=== PATIENT | male | born 1990 | race African-American/Black ===

== ENCOUNTER 2018-12-08 08:15 | Inpatient (IN) | payer OTHER ==
[2018-12-08 10:45] VITALS: BMI 33.5
--- NOTE | 2018-12-08 11:44 | HP ---
CIWA Score Nausea/Vomitin Muscle Tremors: 3 Anxiety: 2 Agitation: 2 Paroxysmal Sweats: 1-Minimal Palms Moist Orientation: 0-Oriented Tacttile Disturbances: 0-None Auditory Disturbances: 0-None Visual Disturbances: 0-None Headache: 2-Mild CIWA-Ar Total Score: 12 - Admission Criteria OASAS Guidelines: Admission for Medically Managed Detox: Requires at least one of the followin. CIWA greater than 12 2. Seizures within the past 24 hours 3. Delirium tremens within the past 24 hours 4. Hallucinations within the past 24 hours 5. Acute intervention needed for co occurring medical disorder 6. Acute intervention needed for co occurring psychiatric disorder 7. Severe withdrawal that cannot be handled at a lower level of care (continued vomiting, continued diarrhea, abnormal vital signs) requiring intravenous medication and/or fluids 8. Admission ROS [facility] Chief Complaint: alcohol detox Allergies/Adverse Reactions: Allergies Allergy/AdvReac Type Severity Reaction Status Date / Time No Known Allergies Allergy Verified 12/08/18 10:38 History of Present Illness: 28 yo with schizophrenia and depression, not taking meds for about 4 months. Used to go to [facility]. Has no regular MH f/u. Says he has been drinking alcohol - 3 1/2 pints of Parvez plus 2 beers every day. States feeling sick for the last 2 months. Not eating much- says his stomach hurts from eating and drinking. Says he smokes or drinks all day. Does not do anything else. Has no PCP. Says he was picked up this morning. Says his last drink was yesterday. No seizures, h/o blackouts. THC- uses about 1/4 bag daily DUr- no meds - Ebola screening Have you traveled outside of the country in the last 21 days: No (N) Have you had contact with anyone from an Ebola affected area: No Do you have a fever: No - Review of Systems Constitutional: No Symptoms Reported EENT: reports: No Symptoms Reported Respiratory: reports: No Symptoms reported Cardiac: reports: No Symptoms Reported GI: reports: Abdominal Distended, Nausea, Other (watery stools for the last 2 months- says he also has abd pain- thinks it is due to alcohol) : reports: No Symptoms Reported Musculoskeletal: reports: No Symptoms Reported Integumentary: reports: No Symptoms Reported Neuro: reports: No Symptoms reported Endocrine: reports: No Symptoms Reported Patient History - Patient Medical History Hx Anemia: No Hx Chronic Obstructive Pulmonary Disease (COPD): No Hx Cancer: No Hx Cardiac Disorders: No Hx Congestive Heart Failure: No Hx Hypertension: No Hx Hypercholesterolemia: No Hx Pacemaker: No HX Cerebrovascular Accident: No Hx Seizures: No Hx Dementia: No Hx Diabetes: No Hx Gastrointestinal Disorders: No Hx Liver Disease: No Hx Genitourinary Disorders: No Hx Sexually Transmitted Disorders: No Hx Renal Disease (ESRD): No Hx Thyroid Disease: No Hx Human Immunodeficiency Virus (HIV): No Hx Hepatitis C: No Hx Depression: Yes Hx Suicide Attempt: No Hx Bipolar Disorder: No Hx Schizophrenia: Yes - Patient Surgical History Past Surgical History: No Hx Neurologic Surgery: No Hx Cataract Extraction: No Hx Cardiac Surgery: No Hx Lung Surgery: No Hx Breast Surgery: No Hx Breast Biopsy: No Hx Abdominal Surgery: No Hx Appendectomy: No Hx Cholecystectomy: No Hx Genitourinary Surgery: No Hx Section: No Hx Orthopedic Surgery: No Anesthesia Reaction: (N/A) - PPD History Date: 10/28/15 - Smoking Cessation Smoking history: Current every day smoker Have you smoked in the past 12 months: Yes Aproximately how many cigarettes per day: 10 Hx Chewing Tobacco Use: No Initiated information on smoking cessation: Yes 'Breaking Loose' booklet given: 12/08/18 - Substances abused Alcohol Substance route: Oral Frequency: Daily Amount used: 2-3 pints Age of first use: 17 Date of last use: 12/08/18 Marijuana/Hashish Substance route: Smoking Frequency: Daily Amount used: 7 grams Age of first use: 17 Date of last use: 12/08/18 Family Disease History - Family Disease History Family Disease History: Diabetes: Mother, Brother, Other: Father (NEVER MEET) Admission Physical Exam BHS - Vital Signs Vital Signs: Vital Signs - 24 hr 12/08/18 10:25 Temperature 98.6 F Pulse Rate 59 L Respiratory 18 Rate Blood Pressure 133/85 - Physical General Appearance: Yes: Disheveled, Mild Distress HEENTM: Yes: Within Normal Limits, EOMI, Hearing grossly Normal Respiratory: Yes: Within Normal Limits, Chest Non-Tender, Lungs Clear Neck: Yes: Within Normal Limits Cardiology: Yes: Within Normal Limits, Regular Rhythm Abdominal: Yes: Within Normal Limits, Other (mildly tender mid epigastrium, no rebound, no HSM) Back: Yes: Within Normal Limits Musculoskeletal: Yes: Within Normal Limits Extremities: Yes: Within Normal Limits, Normal Inspection Neurological: Yes: Within Normal Limits, business consultant II-XII NML intact, Fully Oriented Integumentary: Yes: Within Normal Limits Lymphatic: Yes: Within Normal Limits - Diagnostic (1) Alcohol dependence with withdrawal Current Visit: No Status: Acute Qualifiers: Complication of substance-induced condition: uncomplicated Qualified Code(s ): F10.230 - Alcohol dependence with withdrawal, uncomplicated (2) Cannabis dependence Current Visit: No Status: Acute (3) Schizophrenia Current Visit: No Status: Chronic Qualifiers: Schizophrenia type: paranoid schizophrenia Qualified Code(s): F20.0 - Paranoid schizophrenia Comment: ANGELA FLANNERY DEPAKOTE Breathalyzer - Breathalyzer Breathalyzer: 0 Urine Drug Screen - Test Device Lot number: [id number] Expiration date: 08/30/20 - Control Is test valid?: Yes - Results Drug screen NEGATIVE: No Urine drug screen results: THC-Marijuana Inpatient Rehab Admission - Rehab Decision to Admit Inpatient rehab admission?: No
[2018-12-08] MEDS ORDERED: MAGNESIUM CITRATE 300 ML BOTTLE PO PRN (11:56)
[2018-12-08] MEDS ORDERED: MENTHOL/PHENOL 1 EACH UD MM PRN (11:56)
[2018-12-08] MEDS ORDERED: chlordiazePOXIDE HCL 25 MG CAPSULE PO ONE (11:56)
[2018-12-08] MEDS ORDERED: NICOTINE POLACRILEX 2 MG GUM BUC PRN (11:56)
[2018-12-08] MEDS ORDERED: ACETAMINOPHEN 325 MG TABLET (FP) PO PRN ×2 (11:56)
[2018-12-08] MEDS ORDERED: MAGNESIUM HYDROX 2400MG/30ML ORAL SUSPENSION 30 ML CUP PO PRN (11:56)
[2018-12-08] MEDS ORDERED: ONDANSETRON *ODT* 4 MG TABLET SL PRN (11:56)
[2018-12-08] MEDS ORDERED: chlordiazePOXIDE HCL 10 MG CAPSULE PO PRN (11:56)
[2018-12-08] MEDS ORDERED: hydrOXYzine PAMOATE 25 MG CAPSULE (FP) PO PRN (11:56)
[2018-12-08] MEDS ORDERED: MAG HYDROX/AL HYDROX/SIMETH 30 ML UNIT-DOSE CUP PO PRN (11:56)
[2018-12-08] MEDS ORDERED: IBUPROFEN 400 MG TABLET (FP) PO PRN (11:56)
[2018-12-08] MEDS ORDERED: BISMUTH SUBSALICYLATE 524 MG/30 ML UD PO PRN (11:56)
[2018-12-08] MEDS: METHOCARBAMOL 500 MG TABLET PO PRN (14:02)
[2018-12-08] MEDS: THIAMINE HCL 100 MG TABLET (FP) PO SCH (23:02)
[2018-12-08] MEDS: MELATONIN 5 MG TABLETS PO PRN (23:02)
[2018-12-08] MEDS: chlordiazePOXIDE HCL 25 MG CAPSULE PO SCH (23:02)
[2018-12-09] MEDS: chlordiazePOXIDE HCL 25 MG CAPSULE PO SCH ×3 (05:48→22:18)
[2018-12-09] MEDS: PRENATAL VITAMINS W/ FOLIC ACID TABLET (FP) PO SCH (10:29)
--- NOTE | 2018-12-09 10:56 | PN ---
S CIWA - CIWA Score Nausea/Vomitin-Mild Nausea/No Vomiting Muscle Tremors: 2 Anxiety: 4-Mod. Anxious/Guarded Agitation: 3 Paroxysmal Sweats: 2 Orientation: 0-Oriented Tacttile Disturbances: 1-Very Mild Itch/Numbness Auditory Disturbances: 0-None Visual Disturbances: 0-None Headache: 1-Very Mild CIWA-Ar Total Score: 14 BHS Progress Note (SOAP) Subjective: 28 years old male 1st patient [facility] admission since 2017 was admitted on 12/08/18 for alcohol withdrawal sx management doing well with librium detox able to rest on bed comfortably c/o long history of GERD treated with over the counter antiacid medication begin zantac 150 mg po bid encourage maalox Objective: 12/09/18 10:59 Vital Signs Temperature 97.5 F L 12/09/18 09:35 Pulse Rate 67 12/09/18 09:35 Respiratory Rate 20 12/09/18 09:35 Blood Pressure 100/60 12/09/18 09:35 O2 Sat by Pulse Oximetry (%) lab pending Assessment: 12/09/18 10:59 alcohol withdrawal sx Plan: continue librium detox regimen
[2018-12-09] MEDS ORDERED: ONDANSETRON *ODT* 4 MG TABLET SL ONE (11:40)
[2018-12-09 12:42] LABS: HEMATOCRIT 41.2 % (35.4-49); HEMOGLOBIN 13.5 GM/dL (11.7-16.9); MCH 27.2 pg (25.7-33.7); MCHC 32.8 g/dl (32.0-35.9); MEAN CELL VOLUME 82.9 fl (80-96); MEAN PLT VOLUME 9.4 fl (7.5-11.1); PLATELET COUNT 132 K/MM3 (134-434); RBC 4.96 M/mm3 (4.00-5.60); RDW 14.8 % (11.9-15.9); WHITE BLOOD COUNT 3.9 K/mm3 (4.0-10.0)
[2018-12-09 12:50] LABS: ALBUMIN 3.6 g/dl (3.4-5.0); BLOOD UREA NITROGEN 10.8 mg/dL (7-18); CALCIUM 9.2 mg/dL (8.5-10.1); CREATININE 1.1 mg/dL (0.55-1.3); POTASSIUM 4.1 mmol/L (3.5-5.1); TOT PROT 6.8 g/dl (6.4-8.2)
[2018-12-09] MEDS: RANITIDINE HCL 150 MG TABLET (FP) PO SCH ×2 (13:00→22:18)
--- NOTE | 2018-12-09 16:02 | CONSULT ---
[facility] Psychiatric Consult - Data Date of interview: 12/09/18 Admission source: [facility] Identifying data: Readmission to [facility] for this 28 y/o AA male self- referred for detoxification (alcohol, cannabis). Examined at [address] [place] [address]. Patient is single, no dependents, homeless, unemployed and supported on welfare. Substance Abuse History: Confirmed by patient. Details in current [facility] report as follows : Smoking history: Current every day smoker. Have you smoked in the past 12 months: Yes. Aproximately how many cigarettes per day: 10. Hx Chewing Tobacco Use: No. Initiated information on smoking cessation: Yes. 'Breaking Loose' booklet given: 12/08/18. - Substances abused. Alcohol. Substance route: Oral. Frequency: Daily. Amount used: 2-3 pints. Age of first use: 17. Date of last use: 12/08/18. Marijuana/Hashish. Substance route: Smoking. Frequency: Daily. Amount used: 7 grams. Age of first use: 17. Date of last use: 12/08/18 Medical History: Patient endorses good general health. Psychiatric History: Patient endorses a history of 2-3 psychiatric hospitalizations (all are at [facility]). First hospitalization occurred in 2015 but the patient indicates that his symptoms ( auditory hallucinations, paranoia) started much more early in his life (age 17) . Mr Elder has received the diagnosis of Schizophrenia vs Schizoaffective Disorder. Dropped out of psychiatric care about 12 months ago (stopped taking his medications : depakote + haldol + cogentin). No show at the [facility] OPD clinic for months. Patient denies history of suicide attempts. Physical/Sexual Abuse/Trauma History: Patient denies. Additional Comment: Urine drug screen results: THC-Marijuana. Noted. Mental Status Exam - Mental Status Exam Alert and Oriented to: Time, Place, Person Cognitive Function: Good Patient Appearance: Well Groomed Mood: Nervous, Withdrawn Affect: Mood Congruent, Blunted Patient Behavior: Fatigued, Appropriate, Cooperative Speech Pattern: Clear, Appropriate Voice Loudness: Normal Thought Process: Goal Oriented Hallucinations: Denies Suicidal Ideation: Denies Homicidal Ideation: Denies Insight/Judgement: Poor Sleep: Well Appetite: Good Muscle strength/Tone: Normal Gait/Station: Normal Psychiatric Findings - Problem List ([place] 1, 2,3) (1) Schizophrenia Current Visit: Yes Status: Chronic Qualifiers: Schizophrenia type: paranoid schizophrenia Qualified Code(s): F20.0 - Paranoid schizophrenia Comment: HALDOL, COGENTIN, DEPAKOTE (2) Alcohol dependence with withdrawal Current Visit: Yes Status: Acute Qualifiers: Complication of substance-induced condition: uncomplicated Qualified Code(s ): F10.230 - Alcohol dependence with withdrawal, uncomplicated (3) Cannabis dependence Current Visit: Yes Status: Chronic (4) Nicotine dependence Current Visit: Yes Status: Chronic (5) Non-compliance Current Visit: Yes Status: Chronic - Initial Treatment Plan Initial Treatment Plan: Psychoeducation. Sleep hygiene. Support. Detoxification. Relapse prevention (MAT) : discussed in this session. Motivational counseling. AA meetings. Groups. Mr Elder has expressed the wish to resume his former medications. Labs reviewed : noted platelets = 132. Will follow. Resumed : haldol 5 mg po hs + cogentin 1 mg po hs + depakote 250 mg po bid. Side effects/benefits of each drug are discussed with the patient. He is made aware of the risk for dystonia, dyskinesias, neuroleptic malignant syndrome , akathisia, sexual dysfunction, Rouse-Gallito Syndrome/toxic epidermal necrolysis, liver dysfunction, blood dyscrasias, weight gain, alopecia and cholinergic issues (dry mouth, urinary hesitancy, constipation, blurred vision) . Patient agrees to resume these medications. Gave verbal consent to MD. Puentes.
[2018-12-09] MEDS: MELATONIN 5 MG TABLETS PO PRN (22:18)
[2018-12-09] MEDS: THIAMINE HCL 100 MG TABLET (FP) PO SCH (22:18)
[2018-12-09] MEDS: DIVALPROEX SODIUM 250 MG TABLET E.C. PO SCH (22:18)
[2018-12-09] MEDS: BENZTROPINE MESYLATE 1 MG TABLET (FP) PO SCH (22:18)
[2018-12-09] MEDS: HALOPERIDOL 5 MG TABLET (FP) PO SCH (22:18)
[2018-12-10] MEDS: chlordiazePOXIDE 5 MG CAPSULE PO SCH ×3 (06:29→21:30)
[2018-12-10] MEDS: RANITIDINE HCL 150 MG TABLET (FP) PO SCH ×2 (10:33→22:38)
[2018-12-10] MEDS: PRENATAL VITAMINS W/ FOLIC ACID TABLET (FP) PO SCH (10:33)
[2018-12-10] MEDS: DIVALPROEX SODIUM 250 MG TABLET E.C. PO SCH ×2 (10:33→22:38)
--- NOTE | 2018-12-10 10:42 | PN ---
[facility] CIWA - CIWA Score Nausea/Vomitin-Mild Nausea/No Vomiting Muscle Tremors: 3 Anxiety: 4-Mod. Anxious/Guarded Agitation: 3 Paroxysmal Sweats: 2 Orientation: 0-Oriented Tacttile Disturbances: 0-None Auditory Disturbances: 0-None Visual Disturbances: 0-None Headache: 0-None Present CIWA-Ar Total Score: 13 S Progress Note (SOAP) Subjective: 28 years old male 1st patient [facility] admission since 2015 was admitted on 12/08/18 for alcohol withdrawal sx management doing well with librium detox regimen seen by psychiatrist treated with cogentin haldol and depakote patient tolerate well patient reported that ensure comfort him and have calming effect ensure 120 ml po od while in detox Objective: 12/10/18 10:46 Vital Signs Temperature 98.5 F 12/10/18 09:57 Pulse Rate 54 L 12/10/18 09:57 Respiratory Rate 18 12/10/18 09:57 Blood Pressure 106/60 12/10/18 09:57 O2 Sat by Pulse Oximetry (%) Laboratory Last Values WBC 3.9 K/mm3 (4.0-10.0) L 12/09/18 09:00 RBC 4.96 M/mm3 (4.00-5.60) 12/09/18 09:00 Hgb 13.5 GM/dL (11.7-16.9) 12/09/18 09:00 Hct 41.2 % (35.4-49) 12/09/18 09:00 MCV 82.9 fl (80-96) 12/09/18 09:00 MCH 27.2 pg (25.7-33.7) 12/09/18 09:00 MCHC 32.8 g/dl (32.0-35.9) 12/09/18 09:00 RDW 14.8 % (11.9-15.9) 12/09/18 09:00 Plt Count 132 K/MM3 (134-434) L D 12/09/18 09:00 MPV 9.4 fl (7.5-11.1) D 12/09/18 09:00 Sodium 140 mmol/L (136-145) 12/09/18 09:00 Potassium 4.1 mmol/L (3.5-5.1) 12/09/18 09:00 Chloride 107 mmol/L (98-107) 12/09/18 09:00 Carbon Dioxide 26 mmol/L (21-32) 12/09/18 09:00 Anion Gap 7 MMOL/L (8-16) L 12/09/18 09:00 BUN 10.8 mg/dL (7-18) 12/09/18 09:00 Creatinine 1.1 mg/dL (0.55-1.3) 12/09/18 09:00 Est GFR (CKD-EPI)AfAm 104.59 12/09/18 09:00 Est GFR (CKD-EPI)NonAf 90.24 12/09/18 09:00 Random Glucose 97 mg/dL (74-106) 12/09/18 09:00 Calcium 9.2 mg/dL (8.5-10.1) 12/09/18 09:00 Total Bilirubin 1.0 mg/dL (0.2-1) 12/09/18 09:00 AST 54 U/L (15-37) H 12/09/18 09:00 ALT 55 U/L (13-61) 12/09/18 09:00 Alkaline Phosphatase 94 U/L (45-117) 12/09/18 09:00 Total Protein 6.8 g/dl (6.4-8.2) 12/09/18 09:00 Albumin 3.6 g/dl (3.4-5.0) 12/09/18 09:00 RPR Titer Nonreactive (NONREACTIVE) 12/09/18 09:00 lab noted Assessment: 12/10/18 10:46 alcohol withdrawal sx Plan: continue librium detox regimen
[2018-12-10] MEDS: HALOPERIDOL 5 MG TABLET (FP) PO SCH (22:38)
[2018-12-10] MEDS: THIAMINE HCL 100 MG TABLET (FP) PO SCH (22:38)
[2018-12-10] MEDS: BENZTROPINE MESYLATE 1 MG TABLET (FP) PO SCH (22:38)
[2018-12-10] MEDS: MELATONIN 5 MG TABLETS PO PRN (22:40)
[2018-12-11] MEDS ORDERED: chlordiazePOXIDE HCL 10 MG CAPSULE PO PRN
[2018-12-11] MEDS: chlordiazePOXIDE HCL 10 MG CAPSULE PO SCH ×3 (07:19→22:30)
[2018-12-11] MEDS: DIVALPROEX SODIUM 250 MG TABLET E.C. PO SCH ×2 (10:34→22:30)
[2018-12-11] MEDS: PRENATAL VITAMINS W/ FOLIC ACID TABLET (FP) PO SCH (10:34)
[2018-12-11] MEDS: RANITIDINE HCL 150 MG TABLET (FP) PO SCH ×2 (10:34→22:30)
--- NOTE | 2018-12-11 11:19 | PN ---
[facility] CIWA - CIWA Score Nausea/Vomitin-No Nausea/No Vomiting Muscle Tremors: 2 Anxiety: 3 Agitation: 2 Paroxysmal Sweats: 1-Minimal Palms Moist Orientation: 0-Oriented Tacttile Disturbances: 0-None Auditory Disturbances: 0-None Visual Disturbances: 0-None Headache: 0-None Present CIWA-Ar Total Score: 8 S Progress Note (SOAP) Subjective: doing well with librium detox regimen seen by psychiatrist treated with haldol cogentin and depakote patient tolerate well discuss aftercare with staff [facility] Objective: 12/11/18 11:19 Vital Signs Temperature 96.6 F L 12/11/18 09:21 Pulse Rate 67 12/11/18 09:21 Respiratory Rate 18 12/11/18 09:21 Blood Pressure 121/66 12/11/18 09:21 O2 Sat by Pulse Oximetry (%) Laboratory Laboratory Last Values WBC 3.9 K/mm3 (4.0-10.0) L 12/09/18 09:00 RBC 4.96 M/mm3 (4.00-5.60) 12/09/18 09:00 Hgb 13.5 GM/dL (11.7-16.9) 12/09/18 09:00 Hct 41.2 % (35.4-49) 12/09/18 09:00 MCV 82.9 fl (80-96) 12/09/18 09:00 MCH 27.2 pg (25.7-33.7) 12/09/18 09:00 MCHC 32.8 g/dl (32.0-35.9) 12/09/18 09:00 RDW 14.8 % (11.9-15.9) 12/09/18 09:00 Plt Count 132 K/MM3 (134-434) L D 12/09/18 09:00 MPV 9.4 fl (7.5-11.1) D 12/09/18 09:00 Sodium 140 mmol/L (136-145) 12/09/18 09:00 Potassium 4.1 mmol/L (3.5-5.1) 12/09/18 09:00 Chloride 107 mmol/L (98-107) 12/09/18 09:00 Carbon Dioxide 26 mmol/L (21-32) 12/09/18 09:00 Anion Gap 7 MMOL/L (8-16) L 12/09/18 09:00 BUN 10.8 mg/dL (7-18) 12/09/18 09:00 Creatinine 1.1 mg/dL (0.55-1.3) 12/09/18 09:00 Est GFR (CKD-EPI)AfAm 104.59 12/09/18 09:00 Est GFR (CKD-EPI)NonAf 90.24 12/09/18 09:00 Random Glucose 97 mg/dL (74-106) 12/09/18 09:00 Calcium 9.2 mg/dL (8.5-10.1) 12/09/18 09:00 Total Bilirubin 1.0 mg/dL (0.2-1) 12/09/18 09:00 AST 54 U/L (15-37) H 12/09/18 09:00 ALT 55 U/L (13-61) 12/09/18 09:00 Alkaline Phosphatase 94 U/L (45-117) 12/09/18 09:00 Total Protein 6.8 g/dl (6.4-8.2) 12/09/18 09:00 Albumin 3.6 g/dl (3.4-5.0) 12/09/18 09:00 RPR Titer Nonreactive (NONREACTIVE) 12/09/18 09:00 TB (QFT) Incubation (.) 12/09/18 09:00 TB Test (QFT) Nil 0.03 IU/mL (.) 12/09/18 09:00 TB Test (QFT) Mitogen >10.00 IU/mL (.) 12/09/18 09:00 TB Test (QFT) Antigen 0.03 IU/mL (.) 12/09/18 09:00 TB Test (QFT) Negative (Negative) 12/09/18 09:00 TB Positive Criteria (.) 12/09/18 09:00 lab noted Assessment: 12/11/18 11:20 alcohol withdrawal sx Plan: continue libirum detox regimen
[2018-12-11] MEDS: THIAMINE HCL 100 MG TABLET (FP) PO SCH (22:30)
[2018-12-11] MEDS: HALOPERIDOL 5 MG TABLET (FP) PO SCH (22:30)
[2018-12-11] MEDS: BENZTROPINE MESYLATE 1 MG TABLET (FP) PO SCH (22:30)
[2018-12-11] MEDS: MELATONIN 5 MG TABLETS PO PRN (22:30)
[2018-12-11] MEDS: METHOCARBAMOL 500 MG TABLET PO PRN (22:31)
[2018-12-12] MEDS ORDERED: chlordiazePOXIDE HCL 10 MG CAPSULE PO ONE (05:00)
[2018-12-12] MEDS: RANITIDINE HCL 150 MG TABLET (FP) PO SCH (10:23)
[2018-12-12] MEDS: DIVALPROEX SODIUM 250 MG TABLET E.C. PO SCH (10:23)
[2018-12-12] MEDS: PRENATAL VITAMINS W/ FOLIC ACID TABLET (FP) PO SCH (10:24)
--- NOTE | 2018-12-12 10:33 | DS ---
[facility] Detox Discharge Summary Admission Date: 12/08/18 Discharge Date: 12/12/18 - History Present History: Alcohol Dependence Additional Comments: 28 years old male admitted on 12/08/18 for alcohol withdrawal sx management did well with librium detox regimen no complication through out the detox stay seen by psychiatrist treated with depakote 250 mg po bid haldol 5 mg po hs and cogentin 1 mg po hs patient tolerated well alert oriented x 3 cardiac S1S2 regular rate rhythm no shortness of breath no wheezing - Physical Exam Results Vital Signs: Vital Signs Temperature 97.8 F 12/12/18 09:17 Pulse Rate 51 L 12/12/18 09:17 Respiratory Rate 16 12/12/18 09:17 Blood Pressure 116/66 12/12/18 09:17 O2 Sat by Pulse Oximetry (%) Pertinent Admission Physical Exam Findings: alcohol withdrawal sx Laboratory Last Values WBC 3.9 K/mm3 (4.0-10.0) L 12/09/18 09:00 RBC 4.96 M/mm3 (4.00-5.60) 12/09/18 09:00 Hgb 13.5 GM/dL (11.7-16.9) 12/09/18 09:00 Hct 41.2 % (35.4-49) 12/09/18 09:00 MCV 82.9 fl (80-96) 12/09/18 09:00 MCH 27.2 pg (25.7-33.7) 12/09/18 09:00 MCHC 32.8 g/dl (32.0-35.9) 12/09/18 09:00 RDW 14.8 % (11.9-15.9) 12/09/18 09:00 Plt Count 132 K/MM3 (134-434) L D 12/09/18 09:00 MPV 9.4 fl (7.5-11.1) D 12/09/18 09:00 Sodium 140 mmol/L (136-145) 12/09/18 09:00 Potassium 4.1 mmol/L (3.5-5.1) 12/09/18 09:00 Chloride 107 mmol/L (98-107) 12/09/18 09:00 Carbon Dioxide 26 mmol/L (21-32) 12/09/18 09:00 Anion Gap 7 MMOL/L (8-16) L 12/09/18 09:00 BUN 10.8 mg/dL (7-18) 12/09/18 09:00 Creatinine 1.1 mg/dL (0.55-1.3) 12/09/18 09:00 Est GFR (CKD-EPI)AfAm 104.59 12/09/18 09:00 Est GFR (CKD-EPI)NonAf 90.24 12/09/18 09:00 Random Glucose 97 mg/dL (74-106) 12/09/18 09:00 Calcium 9.2 mg/dL (8.5-10.1) 12/09/18 09:00 Total Bilirubin 1.0 mg/dL (0.2-1) 12/09/18 09:00 AST 54 U/L (15-37) H 12/09/18 09:00 ALT 55 U/L (13-61) 12/09/18 09:00 Alkaline Phosphatase 94 U/L (45-117) 12/09/18 09:00 Total Protein 6.8 g/dl (6.4-8.2) 12/09/18 09:00 Albumin 3.6 g/dl (3.4-5.0) 12/09/18 09:00 RPR Titer Nonreactive (NONREACTIVE) 12/09/18 09:00 TB (QFT) Incubation (.) 12/09/18 09:00 TB Test (QFT) Nil 0.03 IU/mL (.) 12/09/18 09:00 TB Test (QFT) Mitogen >10.00 IU/mL (.) 12/09/18 09:00 TB Test (QFT) Antigen 0.03 IU/mL (.) 12/09/18 09:00 TB Test (QFT) Negative (Negative) 12/09/18 09:00 TB Positive Criteria (.) 12/09/18 09:00 lab noted - Treatment Hospital Course: Detox Protocol Followed, Detoxed Safely, Responded well, Discharged Condition Good, Rehab Referral Accepted Patient has Accepted [facility] Referral [facility] - Medication Discharge Medications: Ambulatory Orders Benztropine Mesylate 1 mg PO BID 10/26/15 Divalproex [Depakote -] 500 mg PO BID 10/26/15 Haloperidol [Haldol -] 5 mg PO BID 10/26/15 Benztropine Mesylate [Cogentin -] 1 mg PO BID #60 tablet 11/23/15 Divalproex [Depakote -] 500 mg PO BID #60 tablet.ec 11/23/15 Haloperidol [Haldol -] 10 mg PO BID #60 tablet 11/23/15 - Diagnosis (1) Alcohol dependence with withdrawal Current Visit: Yes Status: Acute Qualifiers: Complication of substance-induced condition: uncomplicated Qualified Code(s ): F10.230 - Alcohol dependence with withdrawal, uncomplicated (2) Nicotine dependence Current Visit: Yes Status: Acute Qualifiers: Nicotine product type: cigarettes Substance use status: in withdrawal Qualified Code(s): F17.213 - Nicotine dependence, cigarettes, with withdrawal (3) Schizophrenia Current Visit: Yes Status: Suspected Qualifiers: Schizophrenia type: paranoid schizophrenia Qualified Code(s): F20.0 - Paranoid schizophrenia - AMA Did Patient Leave Against Medical Advice: No CIWA Score - CIWA Score Nausea/Vomitin-No Nausea/No Vomiting Muscle Tremors: 1-None Visible, but [place] Anxiety: 2 Agitation: 1-Slight > Activity Paroxysmal Sweats: No Perspiration Orientation: 0-Oriented Tacttile Disturbances: 0-None Auditory Disturbances: 0-None Visual Disturbances: 0-None Headache: 0-None Present CIWA-Ar Total Score: 4
[2018-12-12 13:22] VITALS: BP 107/71; PULSE 64; TEMP 99.9
== END 2018-12-12 14:30 | disposition other institution (70) | DRG 775 ==
LOC: YASAS 08:15 → Y3N 12:33
PROVIDERS: ADMIT Surgery; ATTEND Surgery
PROC: HZ2ZZZZ Detoxification Services for Substance Abuse Treatment (ICD-10-PCS; principal; 2018-12-08)
DX: F10.230 Alcohol dependence with withdrawal, uncomplicated (principal); F12.20 Cannabis dependence, uncomplicated; F17.213 Nicotine dependence, cigarettes, with withdrawal; F20.0 Paranoid schizophrenia
CPT/HCPCS: 36415; 80053; 85027; 86480; 86593; Q0162

== ENCOUNTER 2018-12-12 14:39 | Inpatient (IN) | payer OTHER ==
--- NOTE | 2018-12-12 10:45 | HP ---
[facility] Rehab Assess/Revision - Admission History Admitted to Rehab from: [facility] Date of Admission to Rehab: 12/12/18 - Findings Detox History & Physical reviewed: Yes Concur with findings: Yes Comments/Additional Findings: transferred from detox to rehab admission as per protocol Inpatient Rehab Admission - Rehab Decision to Admit Inpatient rehab admission?: Yes - Initial Determination Are CD services needed?: Yes Free of communicable disease: Yes Not in need of hospitalization: Yes - Rehab Admission Criteria Previous failed treatment: Yes Poor recovery environment: Yes Comorbidities: Yes Lacks judgement: Yes Patient is meeting Inpatient Rehab admission criteria:: Yes
[~2018-12-12 14:39] MED LIST: LOPERAMIDE HCL 2 MG CAPSULE PO PRN; MAG HYDROX/AL HYDROX/SIMETH 30 ML UNIT-DOSE CUP PO PRN; MAGNESIUM CITRATE 300 ML BOTTLE PO PRN; MAGNESIUM HYDROX 2400MG/30ML ORAL SUSPENSION 30 ML CUP PO PRN; MENTHOL/PHENOL 1 EACH UD MM PRN; NICOTINE 7 MG/24 HOURS TOPICAL PATCH TD PRN; P-EPHED 60MG/TRIPROLIDI 2.5MG TABLET PO PRN; guaiFENesin 200 MG/10 ML 10 ML UNIT-DOSE CUPS PO PRN
[2018-12-12] MEDS: DIVALPROEX SODIUM 250 MG TABLET E.C. PO SCH (21:14)
[2018-12-12] MEDS: BENZTROPINE MESYLATE 1 MG TABLET (FP) PO SCH (21:14)
[2018-12-12] MEDS: HALOPERIDOL 5 MG TABLET (FP) PO SCH (21:14)
[2018-12-12] MEDS: THIAMINE HCL 100 MG TABLET (FP) PO SCH (21:15)
[2018-12-12] MEDS: MELATONIN 5 MG TABLETS PO PRN (21:15)
[2018-12-13] MEDS: DIVALPROEX SODIUM 250 MG TABLET E.C. PO SCH ×2 (09:54→21:11)
[2018-12-13] MEDS: PRENATAL VITAMINS W/ FOLIC ACID TABLET (FP) PO SCH (09:54)
[2018-12-13] MEDS ORDERED: PNEUMOC 13-VAL CONJ-DIP CRM/PF 0.5 ML DISP.SYRIN IM ONE (12:00)
[2018-12-13] MEDS ORDERED: PNEUMOCOCCAL 23 VACCINE 0.5 ML VIAL IM ONE (12:00)
--- NOTE | 2018-12-13 19:08 | CONSULT ---
[facility] Psychiatric Consult - Data Date of interview: 12/13/18 Admission source: [facility] Identifying data: Case of a 28 y/o AA male who completed detoxification (alcohol , cannabis) at [address] [place] [address]. Now admitted to [address] for rehabilitation. Patient is single, no dependents, homeless, unemployed and supported on welfare. Substance Abuse History: Rediscussed with patient. No changes since intervention at [address] [place] [address]. Details in current [facility] report as follows : Smoking history: Current every day smoker. Have you smoked in the past 12 months: Yes. Aproximately how many cigarettes per day: 10. Hx Chewing Tobacco Use: No. Initiated information on smoking cessation: Yes. 'Breaking Loose' booklet given : 12/08/18. - Substances abused. Alcohol. Substance route: Oral. Frequency: Daily. Amount used: 2-3 pints. Age of first use: 17. Date of last use: 12/08/18. Marijuana/Hashish. Substance route: Smoking. Frequency: Daily. Amount used: 7 grams. Age of first use: 17. Date of last use: 12/08/18 Medical History: Patient endorses good general health. Psychiatric History: Same history since encounter at [address] [place] [address]. Patient endorses a history of 2-3 psychiatric hospitalizations (all are at [facility]). First hospitalization occurred in 2015 but the patient indicates that his symptoms (auditory hallucinations, paranoia) started much more early in his life (age 17). Mr Elder has received the diagnosis of Schizophrenia vs Schizoaffective Disorder. Dropped out of psychiatric care about 12 months ago ( stopped taking his medications : depakote + haldol + cogentin). No show at the [facility] OPD clinic for months. Patient denies history of suicide attempts. Physical/Sexual Abuse/Trauma History: No reported history of abuse. Additional Comment: Urine drug screen results: THC-Marijuana. Noted. Mental Status Exam - Mental Status Exam Alert and Oriented to: Time, Place, Person Cognitive Function: Good Patient Appearance: Well Groomed Mood: Hopeful, Euthymic Affect: Appropriate, Normal Range Patient Behavior: Appropriate Speech Pattern: Clear Voice Loudness: Normal Thought Process: Intact, Goal Oriented Thought Disorder: Not Present Hallucinations: Denies Suicidal Ideation: Denies Homicidal Ideation: Denies Insight/Judgement: Fair Sleep: Well Appetite: Good Gait/Station: Normal Psychiatric Findings - Problem List ([place] 1, 2,3) (1) Schizophrenia Current Visit: Yes Status: Chronic Qualifiers: Schizophrenia type: paranoid schizophrenia Qualified Code(s): F20.0 - Paranoid schizophrenia Comment: ANGELA FLANNERY DEPAKOTE (2) Alcohol dependence Current Visit: Yes Status: Chronic (3) Cannabis dependence Current Visit: Yes Status: Chronic (4) Nicotine dependence Current Visit: Yes Status: Chronic Qualifiers: Nicotine product type: cigarettes Substance use status: in withdrawal Qualified Code(s): F17.213 - Nicotine dependence, cigarettes, with withdrawal - Initial Treatment Plan Initial Treatment Plan: Patient examined. Stable mental status. Psychoducation is ongoing. Harm reduction. Motivational counseling. angela Flannery depakote : continuity of care initiated at [address] [place] [address] (as per current orders). Informed consent revalidated with the patient. Observation.
[2018-12-13] MEDS: HALOPERIDOL 5 MG TABLET (FP) PO SCH (21:11)
[2018-12-13] MEDS: THIAMINE HCL 100 MG TABLET (FP) PO SCH (21:11)
[2018-12-13] MEDS: BENZTROPINE MESYLATE 1 MG TABLET (FP) PO SCH (21:11)
[2018-12-13] MEDS: MELATONIN 5 MG TABLETS PO PRN (21:12)
[2018-12-14] MEDS: PRENATAL VITAMINS W/ FOLIC ACID TABLET (FP) PO SCH (09:51)
[2018-12-14] MEDS: DIVALPROEX SODIUM 250 MG TABLET E.C. PO SCH ×2 (09:51→21:30)
[2018-12-14] MEDS: IBUPROFEN 400 MG TABLET (FP) PO PRN (21:30)
[2018-12-14] MEDS: HALOPERIDOL 5 MG TABLET (FP) PO SCH (21:30)
[2018-12-14] MEDS: MELATONIN 5 MG TABLETS PO PRN (21:30)
[2018-12-14] MEDS: BENZTROPINE MESYLATE 1 MG TABLET (FP) PO SCH (21:30)
[2018-12-14] MEDS: THIAMINE HCL 100 MG TABLET (FP) PO SCH (21:30)
[2018-12-15] MEDS: PRENATAL VITAMINS W/ FOLIC ACID TABLET (FP) PO SCH (09:56)
[2018-12-15] MEDS: DIVALPROEX SODIUM 250 MG TABLET E.C. PO SCH ×2 (09:56→21:19)
[2018-12-15] MEDS: NICOTINE POLACRILEX 2 MG GUM BUC PRN ×2 (17:30→21:19)
[2018-12-15] MEDS: BENZTROPINE MESYLATE 1 MG TABLET (FP) PO SCH (21:19)
[2018-12-15] MEDS: THIAMINE HCL 100 MG TABLET (FP) PO SCH (21:19)
[2018-12-15] MEDS: MELATONIN 5 MG TABLETS PO PRN (21:19)
[2018-12-15] MEDS: HALOPERIDOL 5 MG TABLET (FP) PO SCH (21:19)
[2018-12-16] MEDS: PRENATAL VITAMINS W/ FOLIC ACID TABLET (FP) PO SCH (10:09)
[2018-12-16] MEDS: DIVALPROEX SODIUM 250 MG TABLET E.C. PO SCH ×2 (10:09→21:14)
[2018-12-16] MEDS: HALOPERIDOL 5 MG TABLET (FP) PO SCH (21:14)
[2018-12-16] MEDS: THIAMINE HCL 100 MG TABLET (FP) PO SCH (21:14)
[2018-12-16] MEDS: BENZTROPINE MESYLATE 1 MG TABLET (FP) PO SCH (21:14)
[2018-12-16] MEDS: MELATONIN 5 MG TABLETS PO PRN (21:14)
[2018-12-17] MEDS: PRENATAL VITAMINS W/ FOLIC ACID TABLET (FP) PO SCH (10:07)
[2018-12-17] MEDS: DIVALPROEX SODIUM 250 MG TABLET E.C. PO SCH ×2 (10:07→21:27)
[2018-12-17] MEDS: HALOPERIDOL 5 MG TABLET (FP) PO SCH (21:27)
[2018-12-17] MEDS: MELATONIN 5 MG TABLETS PO PRN (21:27)
[2018-12-17] MEDS: THIAMINE HCL 100 MG TABLET (FP) PO SCH (21:27)
[2018-12-17] MEDS: BENZTROPINE MESYLATE 1 MG TABLET (FP) PO SCH (21:27)
[2018-12-17] MEDS: NICOTINE POLACRILEX 2 MG GUM BUC PRN (21:28)
[2018-12-18] MEDS: PRENATAL VITAMINS W/ FOLIC ACID TABLET (FP) PO SCH (10:27)
[2018-12-18] MEDS: DIVALPROEX SODIUM 250 MG TABLET E.C. PO SCH ×2 (10:27→21:22)
[2018-12-18] MEDS: NICOTINE POLACRILEX 2 MG GUM BUC PRN ×3 (15:02→21:23)
[2018-12-18] MEDS: BENZTROPINE MESYLATE 1 MG TABLET (FP) PO SCH (21:22)
[2018-12-18] MEDS: HALOPERIDOL 5 MG TABLET (FP) PO SCH (21:22)
[2018-12-18] MEDS: THIAMINE HCL 100 MG TABLET (FP) PO SCH (21:22)
[2018-12-19] MEDS: PRENATAL VITAMINS W/ FOLIC ACID TABLET (FP) PO SCH (10:24)
[2018-12-19] MEDS: DIVALPROEX SODIUM 250 MG TABLET E.C. PO SCH ×2 (10:24→21:23)
[2018-12-19] MEDS: NICOTINE POLACRILEX 2 MG GUM BUC PRN (14:09)
[2018-12-19] MEDS: IBUPROFEN 400 MG TABLET (FP) PO PRN (16:45)
[2018-12-19] MEDS: BENZTROPINE MESYLATE 1 MG TABLET (FP) PO SCH (21:23)
[2018-12-19] MEDS: HALOPERIDOL 5 MG TABLET (FP) PO SCH (21:23)
[2018-12-19] MEDS: THIAMINE HCL 100 MG TABLET (FP) PO SCH (21:23)
[2018-12-19] MEDS: MELATONIN 5 MG TABLETS PO PRN (21:24)
[2018-12-20] MEDS: PRENATAL VITAMINS W/ FOLIC ACID TABLET (FP) PO SCH (10:03)
[2018-12-20] MEDS: DIVALPROEX SODIUM 250 MG TABLET E.C. PO SCH ×2 (10:03→21:26)
[2018-12-20] MEDS: NICOTINE POLACRILEX 2 MG GUM BUC PRN ×3 (18:40→23:27)
[2018-12-20] MEDS: THIAMINE HCL 100 MG TABLET (FP) PO SCH (21:26)
[2018-12-20] MEDS: BENZTROPINE MESYLATE 1 MG TABLET (FP) PO SCH (21:26)
[2018-12-20] MEDS: HALOPERIDOL 5 MG TABLET (FP) PO SCH (21:26)
[2018-12-20] MEDS: MELATONIN 5 MG TABLETS PO PRN (21:26)
[2018-12-20] MEDS: ACETAMINOPHEN 325 MG TABLET (FP) PO PRN (21:27)
[2018-12-21] MEDS: PRENATAL VITAMINS W/ FOLIC ACID TABLET (FP) PO SCH (09:35)
[2018-12-21] MEDS: DIVALPROEX SODIUM 250 MG TABLET E.C. PO SCH ×2 (09:35→21:14)
[2018-12-21] MEDS: HALOPERIDOL 5 MG TABLET (FP) PO SCH (21:14)
[2018-12-21] MEDS: THIAMINE HCL 100 MG TABLET (FP) PO SCH (21:14)
[2018-12-21] MEDS: BENZTROPINE MESYLATE 1 MG TABLET (FP) PO SCH (21:14)
[2018-12-21] MEDS: MELATONIN 5 MG TABLETS PO PRN (21:14)
[2018-12-21] MEDS: ACETAMINOPHEN 325 MG TABLET (FP) PO PRN (21:55)
[2018-12-22] MEDS: PRENATAL VITAMINS W/ FOLIC ACID TABLET (FP) PO SCH (09:57)
[2018-12-22] MEDS: DIVALPROEX SODIUM 250 MG TABLET E.C. PO SCH ×2 (09:57→21:18)
[2018-12-22] MEDS: BENZTROPINE MESYLATE 1 MG TABLET (FP) PO SCH (21:18)
[2018-12-22] MEDS: HALOPERIDOL 5 MG TABLET (FP) PO SCH (21:18)
[2018-12-22] MEDS: THIAMINE HCL 100 MG TABLET (FP) PO SCH (21:18)
[2018-12-22] MEDS: NICOTINE POLACRILEX 2 MG GUM BUC PRN (21:19)
[2018-12-22] MEDS: MELATONIN 5 MG TABLETS PO PRN (21:19)
[2018-12-23] MEDS: PRENATAL VITAMINS W/ FOLIC ACID TABLET (FP) PO SCH (11:25)
[2018-12-23] MEDS: DIVALPROEX SODIUM 250 MG TABLET E.C. PO SCH ×2 (11:25→21:17)
[2018-12-23] MEDS: NICOTINE POLACRILEX 2 MG GUM BUC PRN ×3 (17:00→22:17)
[2018-12-23] MEDS: BENZTROPINE MESYLATE 1 MG TABLET (FP) PO SCH (21:17)
[2018-12-23] MEDS: HALOPERIDOL 5 MG TABLET (FP) PO SCH (21:18)
[2018-12-23] MEDS: THIAMINE HCL 100 MG TABLET (FP) PO SCH (21:18)
[2018-12-23] MEDS: ACETAMINOPHEN 325 MG TABLET (FP) PO PRN (21:19)
[2018-12-24] MEDS: DIVALPROEX SODIUM 250 MG TABLET E.C. PO SCH ×2 (10:06→21:17)
[2018-12-24] MEDS: PRENATAL VITAMINS W/ FOLIC ACID TABLET (FP) PO SCH (10:06)
[2018-12-24] MEDS: NICOTINE POLACRILEX 2 MG GUM BUC PRN ×3 (14:04→21:16)
[2018-12-24] MEDS: BENZTROPINE MESYLATE 1 MG TABLET (FP) PO SCH (21:17)
[2018-12-24] MEDS: THIAMINE HCL 100 MG TABLET (FP) PO SCH (21:17)
[2018-12-24] MEDS: HALOPERIDOL 5 MG TABLET (FP) PO SCH (21:17)
[2018-12-24] MEDS: MELATONIN 5 MG TABLETS PO PRN (21:17)
[2018-12-24] MEDS: ACETAMINOPHEN 325 MG TABLET (FP) PO PRN (21:18)
[2018-12-25] MEDS: PRENATAL VITAMINS W/ FOLIC ACID TABLET (FP) PO SCH (10:04)
[2018-12-25] MEDS: DIVALPROEX SODIUM 250 MG TABLET E.C. PO SCH ×2 (10:04→21:09)
--- NOTE | 2018-12-25 13:42 | PN ---
[facility] Progress Note Note: Patient is scheduled for discharge tomorrow. Scripts for 30 days supply of medications(Depakote 250 mg/bid, Haldol 5 mg/hs, Cogentin 1 mg/hs) will be electronically transmitted to [facility] at [address] [place] [address]
[2018-12-25] MEDS: NICOTINE POLACRILEX 2 MG GUM BUC PRN ×3 (14:23→23:00)
[2018-12-25] MEDS: MELATONIN 5 MG TABLETS PO PRN (21:09)
[2018-12-25] MEDS: THIAMINE HCL 100 MG TABLET (FP) PO SCH (21:09)
[2018-12-25] MEDS: BENZTROPINE MESYLATE 1 MG TABLET (FP) PO SCH (21:09)
[2018-12-25] MEDS: HALOPERIDOL 5 MG TABLET (FP) PO SCH (21:09)
[2018-12-26 06:54] VITALS: BP 118/78; PULSE 51; TEMP 97.6
--- NOTE | 2018-12-26 10:20 | DS ---
[facility] Rehab Discharge Summary - [facility] Rehab Discharge Summary Admission Date: 12/12/18 Discharge Date: 12/26/18 - History Present History: Alcohol dependence, Cannabis dependence Additional Comments: Pt is a 28 y/o male admitted to rehab and discharged today after completion. Pertinent Past History: Hx Depression Hx schizophrenia - Discharge Physical Exam Vital Signs: Vital Signs Temperature 97.6 F 12/26/18 06:53 Pulse Rate 51 L 12/26/18 06:53 Respiratory Rate 16 12/26/18 06:53 Blood Pressure 118/78 12/26/18 06:53 O2 Sat by Pulse Oximetry (%) Alert o x 3 Nad Heent:Normocephalic, eomi,gilbert,hearing normal Cardiac:s1 s2,rrr Lungs;cta,jose e. Abdomen:soft,+bs,++fatty,nt,nd Extremities/Skin:No edema,no cyanosis;skin intact Pertinent Admission Physical Exam Findings: Laboratory Tests 12/13/18 08:20 HIV 1&2 Antibody Screen Negative HIV P24 Antigen Negative unremarkable/Status Unchanged - Treatment Discharge Condition: Discharge condition good - Medication Discharge Medications: Ambulatory Orders Benztropine Mesylate [Cogentin -] 1 mg PO HS #30 tablet 12/25/18 Divalproex [Depakote -] 250 mg PO BID #60 tablet.ec 12/25/18 Haloperidol [Haldol -] 5 mg PO HS #30 tablet 12/25/18 - Medication-Assisted Treatment (MAT) Medication-Assisted Treatment (MAT): No - Discharge Instructions Diet, activity, other medical instructions: Diet:Regular Activity:oob, ad asha Other medical instructions:Follow up with CD aftercare at [facility] Follow up [facility] for primary care management. - Diagnosis (1) Alcohol dependence Current Visit: Yes Status: Chronic Qualifiers: Substance use status: uncomplicated Qualified Code(s): F10.20 - Alcohol dependence, uncomplicated (2) Cannabis dependence Current Visit: Yes Status: Chronic (3) Nicotine dependence Current Visit: Yes Status: Chronic Qualifiers: Nicotine product type: cigarettes Substance use status: in withdrawal Qualified Code(s): F17.213 - Nicotine dependence, cigarettes, with withdrawal (4) Schizophrenia Current Visit: Yes Status: Chronic Qualifiers: Schizophrenia type: paranoid schizophrenia Qualified Code(s): F20.0 - Paranoid schizophrenia - Follow-up Referral Minutes to complete discharge: 20 - AMA Did Patient Leave Against Medical Advice: No
[2018-12-26] MEDS: PRENATAL VITAMINS W/ FOLIC ACID TABLET (FP) PO SCH (10:26)
[2018-12-26] MEDS: DIVALPROEX SODIUM 250 MG TABLET E.C. PO SCH (10:26)
== END 2018-12-26 10:35 | disposition home or self-care (01) | DRG 772 ==
LOC: YASAS 14:39 → Y5N 14:40
PROVIDERS: ADMIT Neuromusculoskeletal Medicine & OMM; ATTEND Neuromusculoskeletal Medicine & OMM
PROC: HZ42ZZZ Group Counseling for Substance Abuse Treatment, Cognitive-Behavioral (ICD-10-PCS; principal; 2018-12-12)
DX: F10.20 Alcohol dependence, uncomplicated (principal); F12.20 Cannabis dependence, uncomplicated; F17.213 Nicotine dependence, cigarettes, with withdrawal; F20.0 Paranoid schizophrenia
CPT/HCPCS: 36415; 87389; 90732; G0009

== ENCOUNTER 2022-09-25 12:28 | Inpatient (IN) | payer OTHER ==
[2022-09-25 14:53] VITALS: BMI 22.1
[2022-09-25] MEDS ORDERED: DICYCLOMINE HCL 10 MG CAPSULE PO PRN (16:39)
[2022-09-25] MEDS ORDERED: BENZOCAINE/MENTHOL (CHLORASEPTIC ) LOZENGE MM PRN (16:39)
[2022-09-25] MEDS ORDERED: IBUPROFEN 400 MG TABLET (FP) PO PRN (16:39)
[2022-09-25] MEDS ORDERED: P-EPHED 60MG/TRIPROLIDI 2.5MG TABLET PO PRN (16:39)
[2022-09-25] MEDS ORDERED: IBUPROFEN 600 MG TABLET (FP) PO PRN (16:39)
[2022-09-25] MEDS ORDERED: ONDANSETRON *ODT* 4 MG TABLET SL PRN (16:39)
[2022-09-25] MEDS ORDERED: METHOCARBAMOL 500 MG TABLET PO PRN (16:39)
[2022-09-25] MEDS ORDERED: MAG HYDROX/AL HYDROX/SIMETH 30 ML UNIT-DOSE CUP PO PRN (16:39)
[2022-09-25] MEDS ORDERED: hydrOXYzine PAMOATE 25 MG CAPSULE (FP) PO PRN (16:39)
[2022-09-25] MEDS ORDERED: BISMUTH SUBSALICYLATE 524 MG/30 ML PO PRN (16:39)
[2022-09-25] MEDS ORDERED: BENZONATATE 200 MG CAPSULE PO PRN (16:39)
[2022-09-25] MEDS ORDERED: POLYETHYLENE GLYCOL (HEALTHYLAX) 3350 17 GM PACKET PO PRN (16:39)
[2022-09-25] MEDS ORDERED: LOPERAMIDE HCL 2 MG CAPSULE PO PRN (16:39)
[2022-09-25] MEDS ORDERED: ACETAMINOPHEN 325 MG TABLET (FP) PO PRN (16:39)
[2022-09-25] MEDS ORDERED: MAGNESIUM HYDROX 2400MG/30ML ORAL SUSPENSION 30 ML CUP PO PRN (16:39)
[2022-09-25] MEDS ORDERED: guaiFENesin 600 MG TABLET.ER (FP) PO PRN (16:39)
[2022-09-25] MEDS ORDERED: diazePAM 5 MG TABLET PO PRN (16:59)
[2022-09-25] MEDS: diazePAM 5 MG TABLET PO SCH ×2 (17:36→22:17)
[2022-09-25] MEDS: LIDOCAINE 5% TOPICAL PATCH TP SCH (17:37)
[2022-09-25] MEDS: THIAMINE HCL 100 MG TABLET (FP) PO SCH (22:16)
[2022-09-25] MEDS: MELATONIN 5 MG TABLETS PO SCH (22:16)
[2022-09-25] MEDS: LIDOCAINE PATCH REMOVAL MC SCH (22:16)
[2022-09-26] MEDS: diazePAM 5 MG TABLET PO SCH ×4 (05:11→22:15)
[2022-09-26] MEDS: LIDOCAINE 5% TOPICAL PATCH TP SCH (10:10)
[2022-09-26] MEDS: PRENATAL VITAMINS W/ FOLIC ACID TABLET (FP) PO SCH (10:11)
[2022-09-26 11:19] LABS: HEMATOCRIT 41.5 % (35.4-49); HEMOGLOBIN 13.9 GM/dL (11.7-16.9); MCHC 33.5 g/dl (32.0-35.9); MEAN CELL VOLUME 83.7 fl (80-96); MEAN PLT VOLUME 8.9 fl (7.5-11.1); PLATELET COUNT 90 10^3/uL (134-434); RBC 4.96 M/mm3 (4.00-5.60); RDW 14.6 % (11.9-15.9); WHITE BLOOD COUNT 3.5 K/mm3 (4.0-10.0)
[2022-09-26 11:42] LABS: CALCIUM 9.4 mg/dL (8.5-10.1)
[2022-09-26 11:43] LABS: ALBUMIN 3.4 g/dl (3.4-5.0)
[2022-09-26 11:45] LABS: BLOOD UREA NITROGEN 7.2 mg/dL (7-18)
[2022-09-26 11:48] LABS: CREATININE 0.9 mg/dL (0.55-1.3)
[2022-09-26 11:50] LABS: TOT PROT 6.6 g/dl (6.4-8.2)
[2022-09-26 11:56] LABS: BILIRUBIN,TOTAL 1.8 mg/dL (0.2-1)
[2022-09-26] MEDS: QUEtiapine FUMARATE 100 MG TABLET (FP) PO SCH (22:15)
[2022-09-26] MEDS: LIDOCAINE PATCH REMOVAL MC SCH (22:15)
[2022-09-26] MEDS: MELATONIN 5 MG TABLETS PO SCH (22:15)
[2022-09-26] MEDS: THIAMINE HCL 100 MG TABLET (FP) PO SCH (22:15)
[2022-09-27] MEDS: diazePAM 5 MG TABLET PO SCH ×3 (05:48→21:46)
[2022-09-27] MEDS: LIDOCAINE 5% TOPICAL PATCH TP SCH (10:12)
[2022-09-27] MEDS: PRENATAL VITAMINS W/ FOLIC ACID TABLET (FP) PO SCH (10:12)
[2022-09-27] MEDS: LIDOCAINE PATCH REMOVAL MC SCH (21:46)
[2022-09-27] MEDS: QUEtiapine FUMARATE 100 MG TABLET (FP) PO SCH (21:47)
[2022-09-27] MEDS: MELATONIN 5 MG TABLETS PO SCH (21:47)
[2022-09-27] MEDS: THIAMINE HCL 100 MG TABLET (FP) PO SCH (21:47)
[2022-09-28] MEDS: diazePAM 5 MG TABLET PO SCH ×2 (05:56→17:22)
[2022-09-28] MEDS: LIDOCAINE 5% TOPICAL PATCH TP SCH (09:04)
[2022-09-28] MEDS: PRENATAL VITAMINS W/ FOLIC ACID TABLET (FP) PO SCH (09:04)
[2022-09-28 11:55] LABS: HEMATOCRIT 44.5 % (35.4-49); HEMOGLOBIN 14.4 GM/dL (11.7-16.9); MCHC 32.3 g/dl (32.0-35.9); MEAN CELL VOLUME 86.7 fl (80-96); MEAN PLT VOLUME 9.7 fl (7.5-11.1); PLATELET COUNT 103 10^3/uL (134-434); RBC 5.13 M/mm3 (4.00-5.60); RDW 14.6 % (11.9-15.9)
[2022-09-28 12:14] LABS: BILIRUBIN,TOTAL 0.9 mg/dL (0.2-1)
[2022-09-28] MEDS: LIDOCAINE PATCH REMOVAL MC SCH (22:08)
[2022-09-28] MEDS: QUEtiapine FUMARATE 100 MG TABLET (FP) PO SCH (22:08)
[2022-09-28] MEDS: MELATONIN 5 MG TABLETS PO SCH (22:08)
[2022-09-28] MEDS: THIAMINE HCL 100 MG TABLET (FP) PO SCH (22:08)
[2022-09-29] MEDS ORDERED: diazePAM 5 MG TABLET PO ONE (06:00)
[2022-09-29 09:11] VITALS: BP 113/76; PULSE 74; RESP 17; TEMP 98.2
[2022-09-29] MEDS: LIDOCAINE 5% TOPICAL PATCH TP SCH (10:20)
[2022-09-29] MEDS: PRENATAL VITAMINS W/ FOLIC ACID TABLET (FP) PO SCH (10:20)
== END 2022-09-29 10:36 | disposition other institution (70) | DRG 775 ==
LOC: YASAS 12:28 → Y3N 16:53
PROVIDERS: ADMIT Allergy & Immunology; ATTEND Surgery
PROC: HZ2ZZZZ Detoxification Services for Substance Abuse Treatment (ICD-10-PCS; principal; 2022-09-25)
DX: F10.230 Alcohol dependence with withdrawal, uncomplicated (principal); F12.20 Cannabis dependence, uncomplicated; F25.9 Schizoaffective disorder, unspecified; R74.8 Abnormal levels of other serum enzymes; Z87.891 Personal history of nicotine dependence; Z56.0 Unemployment, unspecified; Z59.00 Homelessness unspecified
CPT/HCPCS: 36415; 80053; 82247; 84450; 84460; 85027; 86780; 87635

== ENCOUNTER 2023-07-16 20:19 | Inpatient (IN) | payer OTHER ==
[2023-07-16 20:49] VITALS: BMI 22.1
[2023-07-16] MEDS ORDERED: ONDANSETRON *ODT* 4 MG TABLET SL PRN (21:13)
[2023-07-16] MEDS ORDERED: MAGNESIUM HYDROX 2400MG/30ML ORAL SUSPENSION 30 ML CUP PO PRN (21:13)
[2023-07-16] MEDS ORDERED: guaiFENesin 600 MG TABLET.ER (FP) PO PRN (21:13)
[2023-07-16] MEDS ORDERED: MAG HYDROX/AL HYDROX/SIMETH 30 ML UNIT-DOSE CUP PO PRN (21:13)
[2023-07-16] MEDS ORDERED: BENZONATATE 200 MG CAPSULE PO PRN (21:13)
[2023-07-16] MEDS ORDERED: DICYCLOMINE HCL 10 MG CAPSULE PO PRN (21:13)
[2023-07-16] MEDS ORDERED: IBUPROFEN 600 MG TABLET (FP) PO PRN (21:13)
[2023-07-16] MEDS ORDERED: BENZOCAINE/MENTHOL (CHLORASEPTIC ) LOZENGE MM PRN (21:13)
[2023-07-16] MEDS ORDERED: ACETAMINOPHEN 325 MG TABLET (FP) PO PRN (21:13)
[2023-07-16] MEDS ORDERED: POLYETHYLENE GLYCOL (HEALTHYLAX) 3350 17 GM PACKET PO PRN (21:13)
[2023-07-16] MEDS ORDERED: LOPERAMIDE HCL 2 MG CAPSULE PO PRN (21:13)
[2023-07-16] MEDS ORDERED: P-EPHED 60MG/TRIPROLIDI 2.5MG TABLET PO PRN (21:13)
[2023-07-16] MEDS ORDERED: NICOTINE POLACRILEX 2 MG GUM BUC PRN (21:13)
[2023-07-16] MEDS ORDERED: BISMUTH SUBSALICYLATE 524 MG/30 ML PO PRN (21:13)
[2023-07-16] MEDS ORDERED: diazePAM 5 MG TABLET PO ONE (22:00)
[2023-07-16] MEDS: IBUPROFEN 400 MG TABLET (FP) PO PRN (23:05)
[2023-07-16] MEDS: MELATONIN 5 MG TABLETS PO SCH (23:05)
[2023-07-16] MEDS: THIAMINE HCL 100 MG TABLET (FP) PO SCH (23:05)
[2023-07-16] MEDS: levETIRAcetam 500 MG TABLET (FP) PO SCH (23:06)
[2023-07-16] MEDS: diazePAM 5 MG TABLET PO ONE (23:14)
[2023-07-17] MEDS ORDERED: chlordiazePOXIDE HCL 25 MG CAPSULE PO PRN (08:32)
[2023-07-17] MEDS: PRENATAL VITAMINS W/ FOLIC ACID TABLET (FP) PO SCH (10:06)
[2023-07-17] MEDS: chlordiazePOXIDE HCL 25 MG CAPSULE PO SCH (10:06)
[2023-07-17] MEDS: FLU VACCINE (FLULAVAL) PF 60 MCG/0.5 ML SYRINGE 2023-2024 IM ONE (11:40)
[2023-07-17 14:39] LABS: HEMATOCRIT 37.3 % (35.4-49); HEMOGLOBIN 12.5 GM/dL (11.7-16.9); MCH 27.2 pg (25.7-33.7); MCHC 33.4 g/dl (32.0-35.9); MEAN CELL VOLUME 81.4 fl (80-96); MEAN PLT VOLUME 9.1 fl (7.5-11.1); PLATELET COUNT 119 10^3/uL (134-434); RBC 4.58 M/mm3 (4.00-5.60); RDW 14.7 % (11.9-15.9); WHITE BLOOD COUNT 6.7 K/mm3 (4.0-10.0)
[2023-07-17 15:06] LABS: POTASSIUM 3.7 mmol/L (3.5-5.1)
[2023-07-17 15:19] LABS: CALCIUM 8.4 mg/dL (8.5-10.1)
[2023-07-17 15:20] LABS: BLOOD UREA NITROGEN 12.8 mg/dL (7-18)
[2023-07-17 15:21] LABS: CREATININE 1.1 mg/dL (0.55-1.3)
[2023-07-17 15:25] LABS: BILIRUBIN,TOTAL 0.6 mg/dL (0.2-1); TOT PROT 6.3 g/dl (6.4-8.2)
[2023-07-18] MEDS: DIVALPROEX SODIUM 500 MG TABLET E.C. PO SCH (12:07)
[2023-07-18] MEDS: QUEtiapine FUMARATE 100 MG TABLET (FP) PO SCH (22:03)
[2023-07-19] MEDS: chlordiazePOXIDE HCL 25 MG CAPSULE PO SCH (05:40)
[2023-07-20] MEDS ORDERED: chlordiazePOXIDE HCL 10 MG CAPSULE PO PRN
[2023-07-20] MEDS: chlordiazePOXIDE HCL 10 MG CAPSULE PO SCH (06:00)
[2023-07-21] MEDS: chlordiazePOXIDE HCL 10 MG CAPSULE PO SCH (06:00)
[2023-07-21] MEDS: hydrOXYzine PAMOATE 25 MG CAPSULE (FP) PO PRN (10:18)
[2023-07-21] MEDS: METHOCARBAMOL 500 MG TABLET PO PRN (10:18)
[2023-07-22] MEDS: chlordiazePOXIDE HCL 10 MG CAPSULE PO ONE (05:49)
[2023-07-22 08:58] VITALS: BP 106/74; PULSE 82; RESP 18; TEMP 97.6
== END 2023-07-22 09:48 | disposition home or self-care (01) | DRG 775 ==
LOC: YASAS 20:19 → Y6N 21:17
PROVIDERS: ADMIT Allergy & Immunology; ATTEND Surgery
PROC: HZ2ZZZZ Detoxification Services for Substance Abuse Treatment (ICD-10-PCS; principal; 2023-07-16)
DX: F10.230 Alcohol dependence with withdrawal, uncomplicated (principal); F12.20 Cannabis dependence, uncomplicated; F17.210 Nicotine dependence, cigarettes, uncomplicated; F25.0 Schizoaffective disorder, bipolar type; R56.9 Unspecified convulsions; Z59.00 Homelessness unspecified
CPT/HCPCS: 36415; 80053; 80164; 85027; 86780; 90686